=== PATIENT | male | born 2000 | race African-American/Black ===

== ENCOUNTER 2021-09-19 15:16 | Emergency (ER) | payer SELFPAY ==
[2021-09-19 17:54] LABS: Bilirubin Neg (Negative); Blood, Urine Negative (Negative); Clarity Clear (Clear); Glucose, Urine (Dipstick) Normal (Negative); Ketone, Urine Negative (Negative); Leukocyte Negative (Negative); Nitrite Negative (Negative); Protein, Urine (Dipstick) Negative (Neg-Trace); Urobilinogen Normal mg/dL (Less than 2)
[2021-09-19] MEDS ORDERED: cefTRIAXone\\ROCEPHIN 500 MG VIAL ONE (18:06)
[2021-09-20 16:06] LABS: Chlam.trachomatis by PCR,Urine DETECTED (NotDetected)
== END 2021-09-19 18:31 | disposition home or self-care (01) ==
LOC: CSHERS 15:16
DX: Z20.2 Contact with and (suspected) exposure to infections with a predominantly sexual mode of transmission (principal)
CPT/HCPCS: 81003; 87491; 87591; 96372; 99283; J0696

== ENCOUNTER 2022-01-11 18:30 | Emergency (ER) | payer SELFPAY ==
[2022-01-11] MEDS ORDERED: Acetaminophen 500 MG TAB ONE (19:07)
[2022-01-11] MEDS ORDERED: Ketorolac Tromethamine 30 MG/ML VIAL ONE (19:07)
== END 2022-01-11 20:07 | disposition home or self-care (01) ==
LOC: CSHERS 18:30
DX: R07.9 Chest pain, unspecified (principal)
CPT/HCPCS: 71046; 93005; 96372; J1885